=== PATIENT | male | born 1955 | race Two or more races ===

== ENCOUNTER 2020-10-29 | Inpatient (IN) | payer OTHER ==
[~2020-10-29] VITALS: Ht 172.7 cm; Wt 108.2 kg
[2020-10-29] MEDS ORDERED: cloNIDine HCL 0.1 MG TAB PO ONE ×3 (00:30→02:15)
[2020-10-29 01:10] LABS: Basophils # (auto) 0.1 10 ^3/uL (0-0.2); Basophils % (auto) 0.5 % (0.0-2.0); Eosinophils # (auto) 0.3 10 ^3/uL (0-0.8); Eosinophils % (auto) 3.4 % (0.0-7.0); Hematocrit 31.5 % (41.0-53.0); Hemoglobin 10.5 g/dL (13.5-17.5); Lymphocytes # (auto) 0.8 10 ^3/uL (0.4-5.4); Lymphocytes % (auto) 8.3 % (10.0-50.0); Mean Corpuscular Hemoglobin 29.7 pg (28.0-32.0); Mean Corpuscular Hgb Conc. 33.4 g/dL (32.0-36.0); Mean Corpuscular Volume 88.8 fL (80.0-100.0); Monocytes # (auto) 0.8 10 ^3/uL (0-1.3); Monocytes % (auto) 8.2 % (0.0-12.0); Neutrophils # (auto) 7.7 10 ^3/uL (1.6-8.6); Neutrophils % (auto) 79.6 % (37.0-80.0); Platelet Count (auto) 263 10^3/uL (140-450); Red Blood Cells 3.54 10^6/uL (4.5-5.90); Red Cell Distribution Width 14.6 % (11.8-14.3); White Blood Cell 9.7 10^3/uL (4.4-10.8)
[2020-10-29 01:28] LABS: Alanine Aminotransferase 113 U/L (16-61); Albumin 2.3 g/dL (3.4-5.0); Anion Gap 15 (5-15); Aspartate Aminotransferase 79 U/L (15-37); BUN/Creatinine Ratio 9.9; Carbon Dioxide 15 mmol/L (21-32); Chloride 107 mmol/L (98-107); GFR African American 6 mL/min; GFR Non-African American 5 mL/min; Glucose 79 mg/dL (74-106); INR 1.05 (0.9-1.15); Magnesium 2.4 mg/dL (1.6-2.6); Partial Thromboplastin Time 30.3 sec (23.0-31.2); Sodium 137 mmol/L (136-145)
[2020-10-29 01:33] LABS: Alkaline Phosphatase 173 U/L (45-117); Bilirubin, Total 0.3 mg/dL (0.2-1.0); Total Protein 6.1 g/dL (6.4-8.2)
[2020-10-29 01:37] LABS: Blood Urea Nitrogen 111 mg/dL (7-18); Calcium 5.5 mg/dL (8.5-10.1)
[2020-10-29] MEDS ORDERED: CALCIUM GLUC 1,000mg/50ml-NS 50 ML IV ONE (01:45)
[2020-10-29] MEDS ORDERED: DEXTROSE 50% SYRINGE 50 ML IV ONE ×2 (01:52→03:12)
[2020-10-29] MEDS ORDERED: cloNIDine HCL 0.1 MG TAB ONE (02:04)
[2020-10-29] MEDS ORDERED: DEXTROSE (50%) 50ML SYRG IV ONE ×3 (02:15→04:45)
[2020-10-29] MEDS ORDERED: D5W/SOD CHL 0.45% 1,000 ML IV ONE ×2 (03:30→04:15)
[2020-10-29] MEDS ORDERED: DEXTROSE 10% 1,000 ML IV ONE (04:45)
[2020-10-29] MEDS ORDERED: DOCUSATE SOD 100 MG CAP PO PRN (05:00)
[2020-10-29] MEDS ORDERED: NITROGLYCERIN 0.4 MG SL TAB SL PRN (05:00)
[2020-10-29] MEDS ORDERED: MORPHINE SULF INJ 2 MG/ML SYRINGE 1ML IV PRN ×2 (05:00→08:45)
[2020-10-29] MEDS ORDERED: hydrALAZINE HCL 20 MG/ML VL IV PRN (05:00)
[2020-10-29] MEDS ORDERED: ACETAMINOPHEN 325 MG TAB PO PRN (05:00)
[2020-10-29] MEDS ORDERED: HYDROcodone-ACET 5/325MG TAB PO PRN (05:00)
[2020-10-29] MEDS ORDERED: MORPHINE SULFATE 4 MG/ML SYR/VIAL IV PRN (05:00)
[2020-10-29] MEDS ORDERED: ONDANSETRON HCL 4 MG/2 ML VIAL IV PRN (05:00)
[2020-10-29] MEDS: D5W/SOD CHLO 0.9% 1,000 ML IV SCH ×2 (05:00→18:18)
[2020-10-29] MEDS: ACCU-CHEK COMFORT CURVE STRIP VI SCH ×8 (08:00→23:00)
[2020-10-29] MEDS: InsuLIN REG 1unit/0.01ml Soln (100units/ml) SC SCH ×7 (08:00→22:00)
[2020-10-29 08:22] VITALS: BP 196/110
[2020-10-29] MEDS ORDERED: METF-371 PO (09:00)
[2020-10-29] MEDS ORDERED: CHLO25TA2 PO (09:00)
[2020-10-29] MEDS ORDERED: ATEN50TA PO (09:00)
[2020-10-29 09:03] VITALS: BP 151/87
[2020-10-29] MEDS ORDERED: ZINC SULFATE 220mg CAP or TAB PO SCH (10:00)
[2020-10-29] MEDS ORDERED: ASCORBIC ACID 500 MG TAB PO SCH (10:00)
[2020-10-29] MEDS: amLODIPine BESYLATE 5 MG TAB PO SCH (10:20)
[2020-10-29] MEDS: MULTIPLE VITAMIN TAB PO SCH (10:21)
[2020-10-29] MEDS: HEPARIN SODIUM (PORCINE) 5000 UNITS/ML 1ML VIAL SC SCH ×2 (10:21→22:09)
[2020-10-29 10:58] LABS: Basophils # (auto) 0 10 ^3/uL (0-0.2); Basophils % (auto) 0.4 % (0.0-2.0); Eosinophils # (auto) 0.5 10 ^3/uL (0-0.8); Eosinophils % (auto) 5.5 % (0.0-7.0); Hematocrit 30.8 % (41.0-53.0); Hemoglobin 10.2 g/dL (13.5-17.5); Lymphocytes % (auto) 11.2 % (10.0-50.0); Mean Corpuscular Hemoglobin 29.7 pg (28.0-32.0); Mean Corpuscular Volume 89.7 fL (80.0-100.0); Monocytes # (auto) 0.6 10 ^3/uL (0-1.3); Monocytes % (auto) 6.8 % (0.0-12.0); Neutrophils # (auto) 6.9 10 ^3/uL (1.6-8.6); Neutrophils % (auto) 76.1 % (37.0-80.0); Nucleated Red Blood Cells % 0.1 %; Platelet Count (auto) 257 10^3/uL (140-450); Red Blood Cells 3.43 10^6/uL (4.5-5.90); Red Cell Distribution Width 14.5 % (11.8-14.3); White Blood Cell 9.1 10^3/uL (4.4-10.8)
[2020-10-29 11:25] LABS: Albumin 2.3 g/dL (3.4-5.0); Calcium 6.2 mg/dL (8.5-10.1); Potassium 4.5 mmol/L (3.5-5.1)
[2020-10-29 11:29] LABS: Bilirubin, Total 0.3 mg/dL (0.2-1.0); Total Protein 5.9 g/dL (6.4-8.2)
[2020-10-29 11:43] LABS: BUN/Creatinine Ratio 9.1
[2020-10-29] MEDS ORDERED: SODIUM BICARBONATE 8.4 % INJ 50ML VIAL IV ONE (12:00)
[2020-10-29 12:36] VITALS: BP 149/84
[2020-10-29] MEDS: DEXTROSE (50%) 50ML SYRG IV PRN ×2 (15:05→16:49)
[2020-10-29] MEDS: DEXTROSE 10% 1,000 ML IV ONE ×2 (15:05→15:50)
[2020-10-29 16:26] VITALS: BP 118/66
[2020-10-29 16:30] LABS: Urine Bacteria NONE SEEN /hpf (None Seen); Urine Blood 1+ /uL (Negative); Urine Specific Gravity 1.011 (1.001-1.035); Urine WBC 1 /hpf (0 - 3)
[2020-10-29 16:57] LABS: Protein, Urine 498.6 mg/dL (0.0-11.9)
[2020-10-29] MEDS: METOPROLOL TARTRATE 25 MG TAB PO SCH (22:09)
[2020-10-29 22:52] VITALS: BP 120/69
[2020-10-30] MEDS: ACCU-CHEK COMFORT CURVE STRIP VI SCH ×24 (00:03→23:05)
[2020-10-30 05:37] VITALS: BP 145/83
[2020-10-30] MEDS: D5W/SOD CHLO 0.9% 1,000 ML IV SCH (07:40)
[2020-10-30] MEDS: DEXTROSE 10% 1,000 ML IV SCH ×2 (07:46→08:27)
[2020-10-30 08:01] LABS: Basophils # (auto) 0.1 10 ^3/uL (0-0.2); Basophils % (auto) 0.9 % (0.0-2.0); Eosinophils # (auto) 0.6 10 ^3/uL (0-0.8); Eosinophils % (auto) 8.3 % (0.0-7.0); Hematocrit 27.2 % (41.0-53.0); Hemoglobin 9.2 g/dL (13.5-17.5); Lymphocytes # (auto) 1.2 10 ^3/uL (0.4-5.4); Mean Corpuscular Hgb Conc. 33.8 g/dL (32.0-36.0); Mean Corpuscular Volume 88.8 fL (80.0-100.0); Monocytes # (auto) 0.7 10 ^3/uL (0-1.3); Monocytes % (auto) 9.1 % (0.0-12.0); Neutrophils # (auto) 5.1 10 ^3/uL (1.6-8.6); Neutrophils % (auto) 66.7 % (37.0-80.0); Nucleated Red Blood Cells % 0.1 %; Platelet Count (auto) 230 10^3/uL (140-450); Red Blood Cells 3.07 10^6/uL (4.5-5.90); Red Cell Distribution Width 14.3 % (11.8-14.3); White Blood Cell 7.7 10^3/uL (4.4-10.8)
[2020-10-30 08:35] LABS: Potassium 4.6 mmol/L (3.5-5.1)
[2020-10-30 08:43] LABS: Albumin 2.2 g/dL (3.4-5.0); BUN/Creatinine Ratio 9.4; Bilirubin, Total 0.3 mg/dL (0.2-1.0); Total Protein 5.4 g/dL (6.4-8.2)
[2020-10-30 08:45] LABS: Calcium 5.6 mg/dL (8.5-10.1)
[2020-10-30 09:00] VITALS: BP 135/76
[2020-10-30] MEDS: MULTIPLE VITAMIN TAB PO SCH (10:32)
[2020-10-30] MEDS: SODIUM BICARBONATE 50ML VIAL 50 ML in D5W/SOD CHL 0.45% 1,000 ML IV SCH ×2 (10:32→22:09)
[2020-10-30] MEDS: HEPARIN SODIUM (PORCINE) 5000 UNITS/ML 1ML VIAL SC SCH ×2 (10:33→22:08)
[2020-10-30] MEDS: METOPROLOL TARTRATE 25 MG TAB PO SCH ×2 (10:33→22:09)
[2020-10-30] MEDS: amLODIPine BESYLATE 5 MG TAB PO SCH (10:37)
[2020-10-30] MEDS: CALCIUM ACETATE 667 MG CAP PO SCH ×2 (12:21→16:58)
[2020-10-30 12:46] VITALS: BP 137/74
[2020-10-30 17:00] VITALS: BP 124/77
[2020-10-30 22:00] VITALS: BP 140/71
[2020-10-31] MEDS: ACCU-CHEK COMFORT CURVE STRIP VI SCH ×24 (00:12→23:13)
[2020-10-31 05:00] VITALS: BP 136/72
[2020-10-31 06:03] LABS: Basophils # (auto) 0.1 10 ^3/uL (0-0.2); Eosinophils # (auto) 0.5 10 ^3/uL (0-0.8); Eosinophils % (auto) 7.2 % (0.0-7.0); Hematocrit 27.6 % (41.0-53.0); Hemoglobin 9.3 g/dL (13.5-17.5); Lymphocytes # (auto) 1.3 10 ^3/uL (0.4-5.4); Lymphocytes % (auto) 17.5 % (10.0-50.0); Mean Corpuscular Hgb Conc. 33.7 g/dL (32.0-36.0); Mean Corpuscular Volume 88.8 fL (80.0-100.0); Monocytes # (auto) 0.7 10 ^3/uL (0-1.3); Monocytes % (auto) 9.9 % (0.0-12.0); Neutrophils # (auto) 4.6 10 ^3/uL (1.6-8.6); Neutrophils % (auto) 64.4 % (37.0-80.0); Nucleated Red Blood Cells % 0.1 %; Platelet Count (auto) 232 10^3/uL (140-450); Red Blood Cells 3.11 10^6/uL (4.5-5.90); White Blood Cell 7.2 10^3/uL (4.4-10.8)
[2020-10-31 06:29] LABS: Albumin 2.3 g/dL (3.4-5.0); BUN/Creatinine Ratio 9.7; Magnesium 2.3 mg/dL (1.6-2.6); Potassium 4.5 mmol/L (3.5-5.1)
[2020-10-31 06:31] LABS: Bilirubin, Total 0.3 mg/dL (0.2-1.0); Total Protein 5.6 g/dL (6.4-8.2)
[2020-10-31 06:38] LABS: Calcium 5.5 mg/dL (8.5-10.1)
[2020-10-31 06:39] LABS: Phosphorus 7.9 mg/dL (2.5-4.90)
[2020-10-31] MEDS: SODIUM BICARBONATE 50ML VIAL 50 ML in D5W/SOD CHL 0.45% 1,000 ML IV SCH ×2 (08:16→17:34)
[2020-10-31] MEDS: CALCIUM ACETATE 667 MG CAP PO SCH ×3 (08:17→17:34)
[2020-10-31 09:00] VITALS: BP 147/76
[2020-10-31] MEDS: MULTIPLE VITAMIN TAB PO SCH (10:45)
[2020-10-31] MEDS: amLODIPine BESYLATE 5 MG TAB PO SCH (10:45)
[2020-10-31] MEDS: METOPROLOL TARTRATE 25 MG TAB PO SCH ×2 (10:46→22:21)
[2020-10-31] MEDS: HEPARIN SODIUM (PORCINE) 5000 UNITS/ML 1ML VIAL SC SCH ×2 (10:51→22:22)
[2020-10-31 13:00] VITALS: BP 147/71
[2020-10-31 17:00] VITALS: BP 121/73
[2020-10-31 22:00] VITALS: BP 147/81
[2020-11-01] MEDS: ACCU-CHEK COMFORT CURVE STRIP VI SCH ×18 (01:15→22:45)
[2020-11-01 05:00] VITALS: BP 132/72
[2020-11-01] MEDS: SODIUM BICARBONATE 50ML VIAL 50 ML in D5W/SOD CHL 0.45% 1,000 ML IV SCH (06:33)
[2020-11-01 06:45] LABS: Basophils # (auto) 0.1 10 ^3/uL (0-0.2); Basophils % (auto) 0.9 % (0.0-2.0); Eosinophils # (auto) 0.4 10 ^3/uL (0-0.8); Eosinophils % (auto) 5.5 % (0.0-7.0); Hematocrit 26.4 % (41.0-53.0); Lymphocytes % (auto) 14.3 % (10.0-50.0); Mean Corpuscular Hemoglobin 30.2 pg (28.0-32.0); Mean Corpuscular Hgb Conc. 34.1 g/dL (32.0-36.0); Mean Corpuscular Volume 88.8 fL (80.0-100.0); Monocytes # (auto) 0.6 10 ^3/uL (0-1.3); Monocytes % (auto) 9.4 % (0.0-12.0); Neutrophils # (auto) 4.7 10 ^3/uL (1.6-8.6); Neutrophils % (auto) 69.9 % (37.0-80.0); Platelet Count (auto) 225 10^3/uL (140-450); Red Blood Cells 2.98 10^6/uL (4.5-5.90); Red Cell Distribution Width 13.9 % (11.8-14.3); White Blood Cell 6.7 10^3/uL (4.4-10.8)
[2020-11-01 08:00] VITALS: BP 131/69
[2020-11-01] MEDS: CALCIUM ACETATE 667 MG CAP PO SCH ×3 (08:00→18:31)
[2020-11-01] MEDS ORDERED: ADENOSINE 90 MG in GIVE UN-DILUTED 0 ML IV STA (08:20)
[2020-11-01] MEDS: MULTIPLE VITAMIN TAB PO SCH (08:55)
[2020-11-01] MEDS: METOPROLOL TARTRATE 25 MG TAB PO SCH ×2 (08:55→22:31)
[2020-11-01] MEDS: HEPARIN SODIUM (PORCINE) 5000 UNITS/ML 1ML VIAL SC SCH ×2 (08:56→22:32)
[2020-11-01] MEDS: amLODIPine BESYLATE 5 MG TAB PO SCH (08:56)
[2020-11-01 10:59] LABS: Hepatitis B Surface Antibody Negative
[2020-11-01 11:35] LABS: Hepatitis A Total Antibody Positive
[2020-11-01 12:00] VITALS: BP 116/64
[2020-11-01 12:02] LABS: Hepatitis B Core Total AB Negative; Hepatitis B Surface Antigen Negative (Negative); Hepatitis C Antibody Negative (Negative)
[2020-11-01 14:33] LABS: BUN/Creatinine Ratio 8.7; Potassium 4.6 mmol/L (3.5-5.1)
[2020-11-01 14:44] LABS: Magnesium 2.4 mg/dL (1.6-2.6); Phosphorus 8.2 mg/dL (2.5-4.90)
[2020-11-01 15:35] LABS: Calcium 5.8 mg/dL (8.5-10.1)
[2020-11-01 16:00] VITALS: BP 117/68
[2020-11-01] MEDS ORDERED: CALCIUM GLUC 1,000mg/50ml-NS 50 ML IV ONE (16:30)
[2020-11-01] MEDS ORDERED: BUMETANIDE 2.5mg/10ml (0.25 mg/ml) INJ IV ONE (20:45)
[2020-11-01 22:00] VITALS: BP 120/64
[2020-11-02] MEDS: ACCU-CHEK COMFORT CURVE STRIP VI SCH
[2020-11-02] MEDS ORDERED: BUMETANIDE 2.5mg/10ml (0.25 mg/ml) INJ IV SCH (06:00)
[2020-11-02] MEDS ORDERED: ERGOCALCIFEROL 50,000 UNIT(1.25MG) CAP PO SCH (09:00)
== END 2020-11-02 00:06 | disposition short-term general hospital (02) | DRG 637 ==
LOC: EDBD → ER → TELE 04:49 → TELE-WESTW 07:55
PROVIDERS: ADMIT Nurse Practitioner Family; ATTEND Internal Medicine
DX: E11.649 Type 2 diabetes mellitus with hypoglycemia without coma (principal); I50.21 Acute systolic (congestive) heart failure; I16.1 Hypertensive emergency; E87.2 Acidosis; I13.2 Hypertensive heart and chronic kidney disease with heart failure and with stage 5 chronic kidney disease, or end stage renal disease; E44.0 Moderate protein-calorie malnutrition; Z20.822 Contact with and (suspected) exposure to COVID-19; E83.51 Hypocalcemia; N17.0 Acute kidney failure with tubular necrosis; D63.8 Anemia in other chronic diseases classified elsewhere; D63.1 Anemia in chronic kidney disease; E88.09 Other disorders of plasma-protein metabolism, not elsewhere classified; K80.20 Calculus of gallbladder without cholecystitis without obstruction; N18.5 Chronic kidney disease, stage 5; E11.22 Type 2 diabetes mellitus with diabetic chronic kidney disease; K76.0 Fatty (change of) liver, not elsewhere classified; R79.89 Other specified abnormal findings of blood chemistry; R94.31 Abnormal electrocardiogram [ECG] [EKG]; E66.01 Morbid (severe) obesity due to excess calories; I70.0 Atherosclerosis of aorta; Z68.36 Body mass index [BMI] 36.0-36.9, adult; Z88.8 Allergy status to other drugs, medicaments and biological substances; Z91.19 Patient's noncompliance with other medical treatment and regimen
CPT/HCPCS: 36415; 36600; 71045; 76705; 76775; 80048; 80053; 80061; 81001; 82010; 82306; 82570; 82805; 82962; 83036; 83605; 83735; 83880; 83970; 84100; 84156; 84300; 84443; 84484; 84550; 85025; 85610; 85730; 86704; 86706; 86708; 86803; 87040; 87340; 87426; 93005; 93306; 96361; 96365; 96375; 96376; G0378; J0153; J2405